=== PATIENT | male | born 1995 | race Hispanic/Latino ===

== ENCOUNTER 2022-11-27 17:14 | Emergency (ER) | payer OTHER, BC ==
[~2022-11-27] VITALS: Ht 172.7 cm; Wt 131.5 kg
[2022-11-27] MEDS ORDERED: KETOROLAC 15MG/ML VIAL (15MG/ML) IM ONE (19:00)
[2022-11-27] MEDS ORDERED: CYCLOBENZAPRINE HCL 10 MG TABLET PO ONE (19:00)
[2022-11-27] MEDS ORDERED: CYCL5TAB PO (20:05)
[2022-11-27] MEDS ORDERED: KETO10TA2 PO (20:05)
[2022-11-27 20:16] VITALS: BP 122/78
== END 2022-11-27 20:17 | disposition home or self-care (01) ==
LOC: EDH 17:14
DX: M62.830 Muscle spasm of back (principal); V43.92XA Unspecified car occupant injured in collision with other type car in traffic accident, initial encounter; Y93.I9 Activity, other involving external motion; Y92.488 Other paved roadways as the place of occurrence of the external cause; Y99.8 Other external cause status
CPT/HCPCS: 99283; 96372; J1885